=== PATIENT | male | born 1965 | race Caucasian/White ===

== ENCOUNTER 2024-06-09 06:35 | Day surgery (SDC) | payer OTHER ==
[~2024-06-09] VITALS: Ht 142.2 cm; Wt 48.6 kg
[~2024-06-09 06:35] MED LIST: SODIUM CHLORIDE 0.9% 1,000 ML ONE
[2024-06-09] MEDS ORDERED: LIDOCAINE/PF 2% 5 ML SYRINGE IVP ONE (06:36)
[2024-06-09] MEDS: SODIUM CHLORIDE 0.9% 1,000 ML IV ONE (07:39)
[2024-06-09 07:46] LABS: GLUCOMETER DEV NAME(LOC) SDS.; GLUCOSE,POINT OF CARE 91 MG/DL (70-110)
[2024-06-09] MEDS ORDERED: OXYGEN THERAPY IH SCH (20:00)
== END 2024-06-09 11:43 | disposition home or self-care (01) ==
LOC: SURGERY 06:35
PROVIDERS: ATTEND Specialist
DX: Z12.11 Encounter for screening for malignant neoplasm of colon (principal); K63.5 Polyp of colon; K29.50 Unspecified chronic gastritis without bleeding; B96.81 Helicobacter pylori [H. pylori] as the cause of diseases classified elsewhere
CPT/HCPCS: 45385; 43239; 88342; 82962; 88305; J3490; J7030